=== PATIENT | male | born 1940 | race Caucasian/White ===

== ENCOUNTER 2018-07-17 22:02 | Inpatient (IN) ==
[2018-07-17 22:40] LABS: BASO# 0.02 X1000 (0.0-0.2); BASO% 0.2 % (0.0-0.8); HEMOGLOBIN 13.2 g/dL (14.0-18.0); IMM GRAN# 0.02 X1000 (0.0-0.04); IMM GRAN% 0.2 % (0.0-0.5); LYMPH# 2.08 X1000 (1.2-3.4); LYMPH% 21.1 % (20.5-51.1); MCH 30.6 PG (27-31); MCV 92.8 FL (81-99); MONO# 0.89 X1000 (0.11-0.59); MPV 10.4 FL (7.4-10.4); NEUT# 6.76 X1000 (1.4-6.5); NEUT% 68.5 % (42.2-75.2); PLT 190 X1000 (130-400); RBC 4.31 XMIL (4.7-6.1); RDW 14.6 % (11.5-14.5); WBC 9.87 X1000 (4.8-10.8)
[2018-07-17] MEDS ORDERED: ZOFRAN IV ONE (22:45)
[2018-07-17] MEDS ORDERED: NS 1,000 ML IV ONE (22:45)
[2018-07-17] MEDS ORDERED: MORPHINE IV ONE (22:47)
[2018-07-17 23:04] LABS: AGAP 15; ALBUMIN 4.5 g/dL (3.5-5.0); ALKALINE PHOSPHATASE 98 U/L (32-122); BUN 18 mg/dL (8-22); CALCIUM 9.4 mg/dL (8.8-10.2); CHLORIDE 99 mmol/L (98-107); COSMO 285; CREATININE 0.7 mg/dL (0.7-1.2); ESTIMATED GFR > 60; GLUCOSE 138 mg/dL (70-104); GOT 31 U/L (10-34); GPT 21 U/L (10-44); MAGNESIUM 1.9 mg/dL (1.5-2.7); POTASSIUM 4.1 mmol/L (3.5-5.1); SODIUM 141 mmol/L (136-145); TCO2 27 mmol/L (25-35); TOTAL PROTEIN 7.1 g/dL (6.3-8.3)
[2018-07-17 23:10] LABS: BILIRUBIN URINE NEGATIVE (NEGATIVE); BLOOD URINE NEGATIVE (NEGATIVE); CLARITY CLEAR (CLEAR); COLOR YELLOW; GLUCOSE URINE NEGATIVE (NEGATIVE); KETONE URINE NEGATIVE (NEGATIVE); LEUKOCYTES URINE NEGATIVE (NEGATIVE); NITRITE URINE NEGATIVE (NEGATIVE); PROTEIN URINE NEGATIVE (NEGATIVE); UROBILINOGEN URINE NORMAL
[2018-07-17 23:15] LABS: URINE EPITHELIAL CELLS <10 /HPF (<10); URINE RBC <10 /HPF (<10); URINE WBC <10 /HPF (<10)
[2018-07-17 23:16] LABS: URINE BACTERIA 1+ /HFP; URINE SOURCE CLEAN CATCH
[2018-07-17 23:36] LABS: OCCULT BLOOD 1 NEGATIVE (NEGATIVE)
[2018-07-18] MEDS ORDERED: TYLENOL PO ONE (01:42)
[2018-07-18] MEDS ORDERED: NS 1,000 ML IV SCH (04:45)
[2018-07-18] MEDS ORDERED: ZOFRAN IV PRN ×2 (04:45→20:13)
[2018-07-18] MEDS ORDERED: MORPHINE IV PRN ×2 (04:48→20:13)
--- NOTE | 2018-07-18 05:37 | HISTORY AND PHYSICAL ---
PRIMARY CARE PROVIDER: Ilan Donato. CHIEF COMPLAINT: Abdominal pain, nausea, vomiting. HISTORY OF PRESENT ILLNESS: Mr. Abarca is a 78-year-old male with a history of hypertension and hyperlipidemia, who comes in after having a couple of days of abdominal pain. The abdominal pain became so sharp that he went to [facility]. He started having nausea and vomiting which he described as rust colored. A Gastroccult was obtained which showed to be positive for blood. A CT of his abdomen showed a small bowel obstruction. He will be admitted to [facility] for further evaluation and treatment. PAST MEDICAL HISTORY: See HPI. PREVIOUS SURGICAL HISTORY: Multiple C-spine and lower back surgeries. SOCIAL HISTORY: Lives with his . No tobacco, alcohol or illicit drugs. FAMILY HISTORY: Mother and father both had congestive heart failure. ALLERGIES: No known drug allergies. HOME MEDICATIONS: A list of home medications has not been reconciled. The patient takes a cholesterol medicine and a blood pressure medicine although he was unsure which. An order was placed for Nursing to reconcile home medications. REVIEW OF SYSTEMS: Fourteen point review of systems conducted with the patient. Pertinent positives listed above in the HPI. All other systems reviewed and found to be negative. PHYSICAL EXAMINATION: VITAL SIGNS: Temperature 97.6, pulse 81, respirations 18, blood pressure 151/78, oxygen saturation 96% on room air. GENERAL: Pleasant 78-year-old male lying in the medical floor bed, answers all questions appropriately. HEENT: The head is atraumatic, normocephalic. Pupils equal, round, reactive to light. Extraocular eye movement is intact. Sclerae are anicteric. Conjunctiva is pink. Oral mucosa is moist. NECK: Supple. No JVD. No thyromegaly. Trachea is midline. No cervical lymphadenopathy. CARDIAC: S1, S2 appreciated. No murmurs, gallops, or rubs. LUNGS: Clear to auscultation bilaterally. No rhonchi, wheezes, rales. Symmetric rise and fall with respirations. ABDOMEN: Soft, nondistended, mildly tender. Greatest area of tenderness left lower quadrant. Bowel sounds hyperactive on the right side, decreased on the left side. EXTREMITIES: No clubbing, cyanosis, or edema. Two-plus pedal pulses bilaterally. GENITOURINARY: No bladder distention. Patient voids. Otherwise deferred. NEUROLOGICAL: Alert and oriented times 3. No focal or motor deficits. Otherwise nonfocal examination. DIAGNOSTIC DATA: CT of the abdomen and pelvis: Official report is pending, small bowel obstruction per [facility] provider. LABORATORY DATA: Hemoglobin 13.2. Hematocrit 40. Glucose 138. All other labs within normal limits. Urine unremarkable. Gastroccult was positive for blood. Stool was negative for blood. ASSESSMENT AND PLAN: 1. Small bowel obstruction. Consult Dr. Mccabe. Normal saline at 75 mL an hour. Morphine as needed for pain. Zofran as needed for nausea. Hold patient NPO. 2. Questionable upper gastrointestinal bleed. Protonix 40 mg IV q.12 hours. Defer to primary team need for GI consultation. He has had no more episodes of nausea and vomiting. 3. Hypertension. Continue home medications when available. 4. Hyperlipidemia. Continue statin when available. Further recommendations per patient clinical course. Dictated by DEQUAN Mann for John Marmolejo MD I have performed a face to face diagnostic evaluation. Labs/ Xrays- reviewed. Exam- Abd- soft. A/P- SBO- Admit, NPO, Surgery consult. Dr. Marmolejo cc: DEQUAN Mann MD [facility]
[2018-07-18 06:10] LABS: INR 1.05; PROTIME 14.5 Seconds (11.0-16.0); PTT 31.1 Seconds (22.3-41.8)
[2018-07-18] MEDS: PROTONIX IV SCH ×2 (06:40→16:44)
[2018-07-18] MEDS: SODIUM CHLORIDE 0.9% INJ SCH (06:40)
--- NOTE | 2018-07-18 08:40 | Diag Imaging Result Doc PS360 ---
CT ABDOMEN/PELVIS W/O CONTRAST - 07/17/2018 INDICATION: LLQ PAIN; STONE VS DIVERTICULITS? THANKS. COMPARISON: 06/16/2014 FINDINGS: At the left side of the pelvis, there is a spigelian hernia containing a loop of small bowel within the fascia planes. There is moderately high-grade small bowel obstruction proximally. The distal small bowel is all extremely collapsed. There is moderate stool throughout the colon. There is trace pelvic free fluid. No free air. Urinary bladder, prostate, and rectum are normal. There is some hazy dependent atelectasis or infiltrate in the lung bases that appears nonspecific. Heart size is top normal. There is advanced coronary artery disease mainly of the left anterior descending coronary artery. There is probably a tiny nonobstructing 2 mm stone in the left kidney stable from prior. IMPRESSION: 1. Spiculated hernia at the left side of the pelvis containing a knuckle of small bowel. This causes high-grade small bowel obstruction. There is trace pelvic free fluid. 2. Slight hazy atelectasis or infiltrate in the lung bases. 3. Tiny nonobstructing left renal stone. This exam was performed using automated exposure control, adjustment of mA or kV according to patient size, and/or use of iterative reconstruction technique Electronically signed by Timbo Carbone 07/18/2018 8:37 AM
--- NOTE | 2018-07-18 17:12 | CONSULTATION ---
DATE OF CONSULTATION: 07/18/2018 Mr. Handy Abarca is a 78-year-old white male who is admitted through [facility] Emergency Department yesterday with crampy abdominal pain, nausea and vomiting and a CT scan which suggested a incarcerated or strangulated left inguinal hernia. He was transferred from [place] to [facility] by our hospitalist and I was asked to evaluate his small bowel obstruction and hernia. HOME MEDICATIONS: Is finasteride mg p.o. at bedtime, omeprazole 40 mg p.o. daily, Zocor 40 mg p.o. every other day and terazosin 10 mg p.o. at bedtime. ALLERGIES: No known drug allergies. 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 He has never smoked. He lives with his here in [place]. PAST MEDICAL HISTORY: Hypertension, hyperlipidemia. He has had multiple spine surgeries. FAMILY HISTORY: Congestive heart failure. REVIEW OF SYSTEMS: A 14-point review of systems was performed and was essentially negative except for the history of present illness. PHYSICAL EXAMINATION: Mr. Handy Abarca is a healthy-appearing white male, older. He is in no acute distress. His is of good weight. He has no jaundice. No oral lesions. No cervical or supraclavicular lymphadenopathy. His heart has regular rate. Lungs were clear to auscultation and percussion bilaterally. His abdomen is now soft. It is not tender. I could feel left inguinal hernia but it was easily reducible. There is no hard mass in the left groin area. There is no evidence of right inguinal hernia. Rectal exam was not performed. He does have palpable peripheral pulses. No peripheral edema. Neurologically he is alert and oriented x3 and appropriate. No focal deficit. DATA: CT scan suggests involving the left side of the pelvis a spigelian hernia containing a loop of small bowel with obstruction. IMPRESSION: Left spigelian and/or inguinal hernia that has now reduced itself. We will start him on clear liquids and plan to repair this hernia laparoscopically or open tomorrow. I have discussed the procedure in detail with the patient and his family at the bedside. We discussed treatment options. He wants to stay hospitalized and have it repaired during this hospitalization. cc: Trisha Mccabe MD
[2018-07-18] MEDS ORDERED: QUELICIN (DOSE) ONE (17:52)
[2018-07-18] MEDS ORDERED: DIPRIVAN 1% ONE (17:52)
[2018-07-18] MEDS ORDERED: ROBINUL ONE ×2 (17:52→19:06)
[2018-07-18] MEDS ORDERED: XYLOCAINE-MPF 2% ONE (17:52)
[2018-07-18] MEDS ORDERED: KEFZOL 2 GM/D5W 2 GM/50 ML IVPB ONE (18:26)
[2018-07-18] MEDS ORDERED: OFIRMEV 1000 MG/ISOTONIC SOLN 1,000 MG/100 ML BOTTLE ONE (18:37)
[2018-07-18] MEDS ORDERED: ZEMURON ONE (18:37)
[2018-07-18] MEDS ORDERED: ZOFRAN ONE (18:37)
[2018-07-18] MEDS ORDERED: DECADRON ONE (18:37)
[2018-07-18] MEDS ORDERED: SENSORCAINE-MPF 0.5%/EPI 1:200,000 ONE (18:53)
[2018-07-18] MEDS ORDERED: NEOSTIGMINE ONE (19:06)
[2018-07-18 19:48] LABS: URINE SOURCE CATH
[2018-07-18 19:50] LABS: BILIRUBIN URINE NEGATIVE (NEGATIVE); BLOOD URINE NEGATIVE (NEGATIVE); COLOR YELLOW; GLUCOSE URINE NEGATIVE (NEGATIVE); KETONE URINE NEGATIVE (NEGATIVE); LEUKOCYTES URINE NEGATIVE (NEGATIVE); NITRITE URINE NEGATIVE (NEGATIVE); PH URINE 5.5; PROTEIN URINE NEGATIVE (NEGATIVE); SP GRAVITY URINE 1.012; TURBIDITY URINE CLEAR (CLEAR); UROBILINOGEN URINE NORMAL (NORMAL)
[2018-07-18 19:52] LABS: UR EPITHELIAL CELLS <10 /HPF (<10); URINE BACTERIA NEGATIVE /HPF; URINE RBC <10 /HPF (<10); URINE WBC <10 /HPF (<10)
[2018-07-18] MEDS ORDERED: D5 1/2 NS + KCL 20 MEQ 1,000 ML ONE (20:02)
[2018-07-18] MEDS: DILAUDID ONE ×2 (20:03→20:08)
--- NOTE | 2018-07-18 20:13 | OPERATIVE NOTE ---
PROCEDURE DATE: 07/18/2018 PREOPERATIVE DIAGNOSES: 1. Small-bowel obstruction. 2. Strangulated ventral (spigelian) hernia. POSTOPERATIVE DIAGNOSES: 1. Small-bowel obstruction. 2. Strangulated ventral (spigelian) hernia. PRINCIPAL PROCEDURES: 1. Diagnostic laparoscopy. 2. Open primary repair of strangulated ventral (spigelian) hernia. SURGEON: Trisha Mccabe MD. ANESTHESIA: General in addition to local anesthetic. ESTIMATED BLOOD LOSS: 25 mL. DRAINS: None. INDICATIONS: Mr. Handy Abarca is a 78-year-old white male who remains active. He presented during the night to [facility] with abdominal pain, nausea, and vomiting. A CT scan suggested a strangulated, left-sided spigelian hernia. He was transferred from [facility] to [facility] for possible surgery. I saw him earlier this morning, and symptomatically he was improved. Again checking on him this evening, he had had some more vomiting and some cramping requiring pain medicine. I could feel the hernia and felt we should go to surgery. FINDINGS: He had a loop of small bowel that was strangulated through a small, left-sided spigelian hernia which was located just lateral to the left lower rectus muscle. There was no defect in the external oblique fascia. But once you went through the external oblique fascia, the defect was in the transversalis and internal oblique. We mobilized this and had to open the fascia somewhat to allow the strangulated hernia to release. Once it released, we felt it was viable, and we did not have to resect any bowel. He did have a bowel obstruction with dilated proximal bowel and decompressed distal bowel. No other intra-abdominal pathology was noted. DESCRIPTION OF PROCEDURE: The patient was brought to the operating room, placed supine, received general anesthesia, and was intubated. An NG tube was placed and also a Baires catheter. His abdomen was prepped and draped in a sterile field. He received Ancef prophylactically. I began the procedure by making a small incision above the umbilicus and then placed a Veress needle through this incision into the abdomen. Pneumoperitoneum was established. The Veress needle was removed. I placed an 11 mm trocar through this incision into the abdomen. The camera was placed through this port, and the abdomen was explored for injury; there was none. There was dilated bowel consistent with his obstruction we easily saw the strangulated left-sided spigelian ventral hernia. That allowed us to make an accurate incision in the left lower quadrant of the abdomen overlying this strangulated hernia. Within the skin, we made an oblique incision much like an appendiceal incision but on the left side with a 15 blade scalpel. It was carried down through the skin and subcutaneous tissue to the external oblique fascia. We opened the external oblique fascia and identified the hernia and had to widen the defect between the transversalis and internal oblique fascia and muscle so that we could reduce the strangulated hernia. Once it reduced, we felt it was viable. We closed the hernia defect primarily. We did this in layers. The first layer was a 0 Vicryl stitch to close the posterior fascia and then the external oblique fascia was closed with a running #1 Maxon stitch. We irrigated the wound and then closed the skin with 4-0 Monocryl subcuticular stitch. We then re-established the pneumoperitoneum. We again looked with the camera intra-abdominally. We were comfortable with our primary repair. Again, we saw no necrotic bowel or gangrenous bowel. We felt there was no leakage of any bowel contents intra-abdominally. There was dilated loops of bowel from the obstruction. We removed the camera and its port and allowed the pneumoperitoneum to dissipate. I used [id number] 2-0 Vicryl stitch to reapproximate the fascia, and then again the skin was closed with 4-0 Monocryl subcuticular stitch. Steri-Strips were applied followed by dry dressing and Medipore tape. Plans are to leave his NG tube and his Baires catheter tube. He will go the recovery room and then return to the floor. cc: MD Ilan Mata MD
[2018-07-19] MEDS: OFIRMEV 1000 MG/ISOTONIC SOLN 1,000 MG/100 ML BOTTLE IV SCH ×5 (00:10→17:55)
[2018-07-19] MEDS: SODIUM CHLORIDE 0.9% INJ SCH ×2 (04:35→17:56)
[2018-07-19] MEDS: PROTONIX IV SCH ×2 (04:35→17:55)
[2018-07-19 06:37] LABS: EOS# 0.01 X1000 (0.0-0.7); EOS% 0.1 % (0.0-10.0); HEMATOCRIT 36.9 % (42.0-52.0); HEMOGLOBIN 11.5 g/dL (14.0-18.0); LYMPH# 0.92 X1000 (1.2-3.4); LYMPH% 11.5 % (20.5-51.1); MCH 29.9 PG (27-31); MCHC 31.2 g/dL (33-37); MCV 95.8 FL (81-99); MONO# 0.64 X1000 (0.11-0.59); MPV 10.6 FL (7.4-10.4); NEUT# 6.45 X1000 (1.4-6.5); NEUT% 80.4 % (42.2-75.2); PLT 173 X1000 (130-400); RBC 3.85 XMIL (4.7-6.1); RDW 14.3 % (11.5-14.5); WBC 8.02 X1000 (4.8-10.8)
[2018-07-19 06:46] LABS: HEMOGLOBIN A1C 5.3 % (4.8-6.0)
[2018-07-19 07:12] LABS: AGAP 8; BUN 14 mg/dL (8-22); CALCIUM 8.3 mg/dL (8.8-10.2); CHLORIDE 106 mmol/L (98-107); COSMO 282; CREATININE 0.8 mg/dL (0.7-1.2); ESTIMATED GFR > 60; GLUCOSE 142 mg/dL (70-104); POTASSIUM 4.5 mmol/L (3.5-5.1); SODIUM 140 mmol/L (136-145); TCO2 26 mmol/L (25-35)
[2018-07-19] MEDS: D5 1/2 NS + KCL 20 MEQ 1,000 ML IV SCH ×3 (07:28→17:52)
[2018-07-19] MEDS ORDERED: APRESOLINE IV PRN (12:37)
--- NOTE | 2018-07-19 13:00 | PROGRESS NOTE ---
DATE: 07/19/2018 SUBJECTIVE: This patient is lying comfortably in bed. He is status post diagnostic laparoscopy with open primary repair of strangulated ventral hernia. This patient has been admitted because of a small-bowel obstruction due to a strangulated ventral hernia. Like I mentioned before, this has been repair by Surgery Department. He is not having any complaints at this moment. He has a Baires catheter and an NG tube in place. We will continue with the same management. I will follow the recommendations of Surgery Department. OBJECTIVE: Vital Signs: Temperature 99.5 degrees, pulse 65, respiratory rate 18, blood pressure 162/81, oxygen saturation 100% on 2 L of nasal cannula. HEENT: Head normocephalic. No trauma. PERRLA. Neck: Supple. No JVD. No masses. Central trachea. Chest: Clear to auscultation. No wheezing. No rales. Abdomen: Soft, slightly distended. Decreased bowel sounds, but present. He does have some wounds that are covered with a clean dressing. No signs of bleeding or infection. Extremities: No edema. No clubbing. No cyanosis. Neurological: The patient is completely alert and oriented x3. No focal deficits. LABORATORY: WBC 8, hemoglobin 11.5, hematocrit 36.9, platelets 173,000. Sodium 140, potassium 4.5, chloride 106, bicarbonate 26, BUN 14, creatinine 0.8, glucose 142, calcium 8.3. ASSESSMENT AND PLAN: 1. Small bowel obstruction with strangulated ventral hernia, status post diagnosis laparoscopy with open primary repair of strangulated ventral/spigelian hernia. This patient is doing fine. He is still has an NG tube in place. He is nothing per oral. I will follow the recommendations of Surgery Department. We will monitor. 2. Hypertension. Stable. Continue with same management. 3. Hyperlipidemia. Continue with statins once this patient is able to tolerate p.o. cc: Chuy Ramos MD
[2018-07-19] MEDS ORDERED: NORCO-10 PO PRN (18:28)
--- NOTE | 2018-07-19 18:52 | PROGRESS NOTE ---
DATE: 07/19/2018 SUBJECTIVE: Mr. Handy Abarca is now postop day 1 from an open primary repair of a strangulated spigelian hernia. He has an NG tube in and a Baires catheter tube. OBJECTIVE: He is awake otherwise cooperative. He has appropriate abdominal tenderness. His abdomen is slightly distended but not tightly so. LABORATORY DATA: His white blood cell count is normal this morning. His hematocrit is 37%. Electrolytes were within normal limits. VITAL SIGNS: His heart rate is 59, blood pressure 169/78, O2 saturation 100%. He is afebrile, on no antibiotics. PLAN: We will remove his NG tube and begin clear liquids. We will change IV medications to p.o. medicines. We will remove his Baires catheter tube at 7 a.m. tomorrow. We will increase his activity and his diet as tolerated and work to get him home. cc: Trisha Mccabe MD
[2018-07-19] MEDS: PROSCAR PO SCH (22:27)
[2018-07-19] MEDS: HYTRIN PO SCH (22:27)
[2018-07-20 06:16] LABS: BASO# 0.02 X1000 (0.0-0.2); BASO% 0.3 % (0.0-0.8); EOS# 0.32 X1000 (0.0-0.7); EOS% 4.5 % (0.0-10.0); HEMATOCRIT 36.6 % (42.0-52.0); HEMOGLOBIN 11.4 g/dL (14.0-18.0); LYMPH# 1.73 X1000 (1.2-3.4); LYMPH% 24.6 % (20.5-51.1); MCH 30.5 PG (27-31); MCHC 31.1 g/dL (33-37); MCV 97.9 FL (81-99); MONO# 0.77 X1000 (0.11-0.59); MONO% 10.9 % (1.7-9.3); MPV 10.6 FL (7.4-10.4); NEUT% 59.7 % (42.2-75.2); PLT 164 X1000 (130-400); RBC 3.74 XMIL (4.7-6.1); RDW 14.9 % (11.5-14.5); WBC 7.04 X1000 (4.8-10.8)
[2018-07-20] MEDS: D5 1/2 NS + KCL 20 MEQ 1,000 ML IV SCH ×2 (06:33→21:49)
[2018-07-20 06:40] LABS: AGAP 5; BUN 10 mg/dL (8-22); CALCIUM 8.5 mg/dL (8.8-10.2); CHLORIDE 108 mmol/L (98-107); COSMO 283; CREATININE 0.8 mg/dL (0.7-1.2); ESTIMATED GFR > 60; GLUCOSE 110 mg/dL (70-104); POTASSIUM 4.2 mmol/L (3.5-5.1); SODIUM 142 mmol/L (136-145); TCO2 29 mmol/L (25-35)
[2018-07-20] MEDS: PRILOSEC PO SCH (06:41)
--- NOTE | 2018-07-20 10:22 | PROGRESS NOTE ---
DATE: 07/20/2018 SUBJECTIVE: Mr. Handy Abarca is a 78-year-old white male who is now postop day 2 from an open primary repair of a strangulated spigelian hernia. He had a small bowel obstruction related to this. Yesterday, I removed his NG tube. This morning his Baires catheter came out. He has been given liquids to drink and we will advance his diet. We need to increase his activity, then be sure he has bowel function. I do feel that he is improving. His abdomen is still slightly distended. His incisions are dressed. OBJECTIVE: His heart rate 63, blood pressure 172/64, O2 saturation 92%. He has a low-grade temperature 99.3 degrees. He is on no antibiotics. His white blood cell count is normal. Hematocrit is 36%. Electrolytes are within normal limits. cc: Trisha Mccabe MD
--- NOTE | 2018-07-20 14:50 | PROGRESS NOTE ---
DATE: 07/20/2018 SUBJECTIVE: This patient is doing better. The Baires catheter and the NG tube has been removed, he will try diet today, he has been passing gas. Abdomen seems to be better. No acute bleeding or infection going on. He will try to walk today. We will monitor. OBJECTIVE: Vital Signs: Temperature 99.3 degrees, pulse 69, respiratory rate 18, blood pressure 157/63, oxygen saturation 95 on room air. HEENT: Head normocephalic. No trauma. PERRLA. Neck: Supple. No JVD. No masses. Central trachea. Chest: Clear to auscultation. No wheezing. No rales. Abdomen: Soft, slightly distended, decreased bowel sounds but present. He does have some wounds that are covered and clean. No signs of bleeding or infection. Extremities: No edema. No clubbing. No cyanosis. Neurological: The patient is completely alert and oriented x3. No focal deficits. LABORATORY: WBC 7, hemoglobin 11.4, hematocrit 36.6, platelets 164,000, sodium 142, potassium 4.2, chloride 108, bicarbonate 29, BUN 10, creatinine 0.8, glucose 110, calcium 8.5. ASSESSMENT AND PLAN: 1. Small bowel obstruction due to strangulated ventral hernia, status post diagnostic laparoscopy with open primary repair of strangulated ventral/spigelian hernia. This patient is doing better. NG tube has been removed as well as Baires catheter. He will try to walk today and he has been placed on a diet, let us see how he does, Surgery Department on board. 2. Hypertension stable. Continue with same management. 3. Hyperlipidemia. Continue with statins. cc: Chuy Ramos MD
[2018-07-20] MEDS: PROSCAR PO SCH (21:32)
[2018-07-20] MEDS: HYTRIN PO SCH (21:32)
[2018-07-21] MEDS: MIRALAX PO SCH ×2 (00:10→10:12)
[2018-07-21] MEDS: D5 1/2 NS + KCL 20 MEQ 1,000 ML IV SCH (01:34)
[2018-07-21] MEDS: PRILOSEC PO SCH ×2 (05:52→06:51)
[2018-07-21 07:20] LABS: AGAP 9; BUN 12 mg/dL (8-22); CALCIUM 8.6 mg/dL (8.8-10.2); CHLORIDE 106 mmol/L (98-107); COSMO 284; CREATININE 0.7 mg/dL (0.7-1.2); ESTIMATED GFR > 60; GLUCOSE 112 mg/dL (70-104); SODIUM 142 mmol/L (136-145); TCO2 27 mmol/L (25-35)
[2018-07-21 07:34] VITALS: BP 157/69
--- NOTE | 2018-07-21 09:57 | DISCHARGE SUMMARY ---
ADMISSION DATE: 07/17/2018 DISCHARGE DATE: 07/21/2018 ADMITTING DIAGNOSIS: Abdominal pain. DISCHARGE DIAGNOSIS: Strangulated ventral hernia with small-bowel obstruction. PRINCIPAL PROCEDURE: Diagnostic laparoscopy with open primary repair without mesh of left strangulated ventral hernia on 07/18/2018. DISCHARGE DISABILITY: Full. DISCHARGE DIET: Regular. DISCHARGE DISPOSITION: He will return to our outpatient offices in approximately 10 days for followup. DISCHARGE MEDICATIONS: He is to return to his home medications. 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 A CT scan was performed in the late evening of 07/17/2018 as part of his evaluation, and it suggested a strangulated left-sided ventral hernia causing a small- bowel obstruction. He was transferred from [place] to [facility] for further evaluation and treatment. On 07/18/2018 in the evening, he underwent an urgent operation which included diagnostic laparoscopy and an open primary repair of his strangulated left spigelian hernia. At the time of surgery, we felt his bowel was viable and no bowel resection was undertaken. We did not use mesh. After surgery, he went to the recovery room and then to the [address] [place] [address] [place]. Initially, he had an NG tube and Baires catheter tube in place. We felt that his postoperative convalescence was normal. We removed his NG tube and Baires and slowly began his diet. At discharge, his abdomen was flat. He had a bowel movement. The wounds were healing well. He was able to ambulate in the halls and he will be discharged home under the care of his with followup in my outpatient offices in about 10 days. At discharge, his heart rate was 73, blood pressure 157/69, O2 saturation 95%. He was afebrile on no antibiotics. His electrolytes on the day of discharge were normal. BUN was 12, creatinine 0.7. He knows to contact us with any problems. cc: Trisha Mccabe MD
[2018-07-21] MEDS ORDERED: ZOCOR PO SCH (21:00)
--- NOTE | 2018-07-22 10:55 | DISCHARGE SUMMARY ---
ADMISSION DATE: 07/18/2018 DISCHARGE DATE: 07/21/2018 ADMISSION DIAGNOSIS: 1. Small bowel obstruction. 2. Hypertension. 3. Hyperlipidemia. DISCHARGE DIAGNOSIS: 1. Strangulated ventral hernia with small bowel obstruction. 2. Hypertension. 3. Hyperlipidemia. CONSULTATIONS: Trisha Mccabe MD with General Surgery. DIAGNOSTIC PROCEDURE AND FINDINGS: Abdomen and pelvis CT done on 07/17/2018 shows a Spigelian hernia on the left side of the pelvis containing a knuckle. This causes high-grade small bowel obstruction. There is trace pelvic free fluid. Slight hazy atelectasis or infiltrate in the lung bases. Tiny nonobstructing left renal stone. OPERATIVE PROCEDURE: Diagnostic laparoscopy with open primary repair of strangulated ventral hernia by Dr. Mccabe on 07/18/2018. HOSPITAL COURSE: Mr. Abarca is a 78-year-old male with a history of hypertension and hyperlipidemia, who came to [facility] with multiple days of abdominal pain associated with nausea and vomiting. There was evidence of small bowel obstruction on CAT scan at [facility]. At that time, Surgery was consulted, and it was felt he would benefit from transfer to [facility] for diagnostic laparoscopy. This was procedure was performed on 07/18/2018, which revealed a strangulated ventral hernia. This was repaired without difficulty or complication by Dr. Mccabe. On arrival, initially an NG tube was placed but after 1 day the NG was removed and he was started on clear liquids and progressed to regular diet without issue. His symptoms have improved and his vitals are stable. He is ready for discharge home. DISCHARGE MEDICATIONS: 1. Finasteride 5 mg p.o. at bedtime. 2. Terazosin 10 mg p.o. at bedtime. 3. Omeprazole 40 mg daily. 4. Zocor 40 mg p.o. every other day. 5. MiraLAX 17 g daily. 6. [place] 7.5 mg pills every 6 hours as needed, 10 tablets, no refills. DISCHARGE LAB: Sodium 142, potassium 4.0, chloride 106, CO2 27, anion gap 9, BUN 12, creatinine 0.7, glucose is 112, calcium 8.6. DISCHARGE DIET: Heart healthy. DISCHARGE ACTIVITY: Resume activity as tolerated. DISPOSITION AND OTHER DISCHARGE INSTRUCTIONS: The patient is discharged home to self-care. He is to follow up with Dr. Mccabe within the next 10 days and his PCP, Dr. Donato, within the next 1-2 weeks. He is to take all medications as directed and return to the ER or call 911 for worsening complaints of concerns. All questions answered. DISCHARGE TIME: Greater than 35 minutes. Dictated by DEQUAN Mueller for Chuy Ramos MD cc: DEQUAN Mueller MD Micah A. Howard, MD Lynn R. Buckner, MD
== END 2018-07-21 13:19 | disposition home or self-care (01) | DRG 355 ==
LOC: P.ED 22:02 → 4N 07-18 02:34 → SUATTDRO 07-18 02:34 → 4N 07-18 02:50
PROVIDERS: ATTEND Internal Medicine
CPT/HCPCS: 74176; 80048; 80053; 81001; 82270; 82271; 83036; 83735; 85025; 85610; 85730; 86850; 86900; 86901; 96361; 96374; 96375; 97116; 97162; 97530; 99285; A9270; C9113; J0131; J0330; J0690; J1100; J1170; J2270; J2405; J3480; J7030; S0138; S0164